=== PATIENT | female | born 1950 | race Caucasian/White ===

== ENCOUNTER 2020-05-10 12:01 | Emergency (ER) | payer MEDICARE, OTHER, SELFPAY ==
--- NOTE | 2020-05-10 12:05 | ED.GENADULT ---
HPI - General Adult General Chief complaint: Ear Stated complaint: Ear Pain Time Seen by Provider: 05/10/20 12:05 Source: patient Mode of arrival: ambulatory Limitations: no limitations History of Present Illness HPI narrative: 70-year-old female patient presents to the [facility] with complaints of left ear pain and swelling. Patient states she has a chronic issues with itchy ears and states that the last couple of weeks she has been itching her ears with a Q-tip. Patient states that yesterday the pain to the left ear got worse. Denies any fevers, body aches or chills. Denies any runny nose, sore throat. Related Data Home Medications Medication Instructions Recorded Confirmed amlodipine [Norvasc] 10 mg PO DAILY 05/10/20 05/10/20 lisinopril [Zestril] 10 mg PO DAILY 05/10/20 05/10/20 venlafaxine [Effexor XR] 75 mg PO DAILY 05/10/20 05/10/20 Allergies Allergy/AdvReac Type Severity Reaction Status Date / Time losartan Allergy Unknown Dry Mouth Verified 05/10/20 12:16 Sulfa (Sulfonamide Allergy Unknown Rash Verified 05/10/20 12:16 Antibiotics) Review of Systems Review of Systems: Narrative: CONSTITUTIONAL: Denies fever, chills, or sweats. EYES: Denies visual changes, redness, or discharge. ENT: Denies rhinorrhea, congestion, sore throat, positive left otalgia. CARDIOVASCULAR: Denies chest pain, palpitations, or edema. RESPIRATORY: Denies cough or dyspnea. GASTROINTESTINAL: Denies abdominal pain, nausea, vomiting, or diarrhea. GENITOURINARY: Denies dysuria or hematuria. SKIN: Denies rash or itching. MUSCULOSKELETAL: Denies back pain, joint pain, or myalgia. NEUROLOGIC: Denies headache, numbness, or weakness. PSYCHIATRIC: Denies anxiety or depression. 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 Dr Kasper at [facility] History of gastric bypass (~1999) History of right knee joint replacement (~05/2018) History of tubal ligation (~1971) Family History Family History Mother Patient's mother is in good health Family history of heart disease in male family member before age 55 Sibling Patient's sister is in good health Patient's brother is in good health Patient's sister is Family history of gastrointestinal disorder Carcinoma of colon Father Patient's father is Family history of heart disease in male family member before age 55 Other Family history of cardiovascular disease Hypertension Social History Social History Smoking status: Former smoker Smoking end date: 07/29/99 Alcohol intake: current Gender identity (if verbalized by the patient): Female Comments At the time of my signature I agree with nursing past medical history, surgical, social, and family history. There is no relevant family history pertinent to the presenting complaint. Exam Narrative: Exam Narrative: GENERAL: Well-appearing, well-nourished, and in no acute distress. HEAD: Normocephalic, atraumatic. EYES: PERRLA and EOMI. ENT: Nares clear, no rhinorrhea or epistaxis. Mucous membranes moist. Posterior pharynx with no erythema, tonsillectomy, exudates or lesions present. The right ear does appear dry and irritated but the TM with has no erythema, bulging no evidence of infection or discharge. The left TM is unable to be assessed due to the fact that the canal is so swollen that I barely able to get the otoscope and there. NECK: Supple. No lymph
[2020-05-10 12:11] VITALS: BP 137/85; PULSE 93; RESP 18; TEMP 36.7; O2SAT 98
== END 2020-05-10 12:42 | disposition home or self-care (01) ==
PROVIDERS: Emergency Provider Nurse Practitioner Family
DX: H60.502 Unspecified acute noninfective otitis externa, left ear (principal); Z87.891 Personal history of nicotine dependence; K21.9 Gastro-esophageal reflux disease without esophagitis; E78.5 Hyperlipidemia, unspecified; I10 Essential (primary) hypertension; Z98.84 Bariatric surgery status; F41.9 Anxiety disorder, unspecified; F32.9 Major depressive disorder, single episode, unspecified; Z96.651 Presence of right artificial knee joint
CPT/HCPCS: 99213; G0463

== ENCOUNTER → 2021-01-06 13:47 | Outpatient (CLI) | payer MEDICARE, OTHER, SELFPAY ==
--- NOTE | ~2021-01-06 | XR_ITS ---
EXAMINATION: XR wrist RT 2V DATE: 01/06/2021 14:11 INDICATION: Right wrist pain. TECHNIQUE: 2 views of right wrist were obtained. COMPARISON: None. FINDINGS: Bone alignment is normal. No fracture. There is moderate osteoarthritis of triscaphe joint and severe osteoarthritis of first carpometacarpal joint. IMPRESSION: 1. Polyarticular osteoarthritis. Reviewed, dictated and finalized at location A.
--- NOTE | ~2021-01-06 | CT_ITS ---
EXAMINATION: CT sinus wo con DATE: 01/06/2021 14:11 INDICATION: Chronic sinusitis TECHNIQUE: Computed tomography (CT) of the paranasal sinuses was performed without intravenous contra st. The dose-length product was 264.97 mGy-cm. Automated exposure control and iterative reconstructio n technique were employed. Automated exposure control and iterative reconstruction technique were employed. COMPARISON: None FINDINGS: Paranasal sinuses and mastoids are pneumatized. No significant mucosal thickening or air-fl uid levels. Ostiomeatal units are patent. Leftward nasal septal deviation. No mucoperiosteal reaction . There is intracranial atherosclerosis. IMPRESSION: 1. No significant sinus disease. Reviewed, dictated and finalized at location B.
--- NOTE | ~2021-01-06 | XR_ITS ---
EXAMINATION: XR wrist LT 2V DATE: 01/06/2021 14:12 INDICATION: Left wrist pain. TECHNIQUE: 3 views of left wrist were obtained. COMPARISON: None. FINDINGS: Bone alignment is normal. No fracture. There is severe osteoarthritis of triscaphe joint an d first carpometacarpal joint. IMPRESSION: 1. Polyarticular osteoarthritis. Reviewed, dictated and finalized at location A.
== END ==
PROVIDERS: Visit Provider Nurse Practitioner Family
DX: J32.9 Chronic sinusitis, unspecified (principal); M19.031 Primary osteoarthritis, right wrist; M19.032 Primary osteoarthritis, left wrist
CPT/HCPCS: 70486; 73100

== ENCOUNTER → 2022-02-06 10:52 | Outpatient (CLI) | payer MEDICARE, OTHER, SELFPAY ==
--- NOTE | ~2022-02-06 | MR_ITS ---
EXAMINATION: MR lumbar spine wo con DATE: 02/06/2022 11:36 INDICATION: Lumbar radiculopathy. TECHNIQUE: Magnetic resonance imaging (MRI) of the lumbar spine was performed without intravenous con trast. Sequences included sagittal T2-weighted FSE, sagittal T2-weighted FS FSE, sagittal T1-weighted FSE, and axial T2-weighted FSE. COMPARISON: None FINDINGS: There is 7 degrees dextrocurvature of thoracic lumbar spine. There is 5 mm retrolisthesis o f L1 on L2, L2 on L3, and L3 on L4 and 6 mm anterolisthesis of L4 on L5. Vertebral body heights are n ormal. There is mildly decreased disc height at T12-L1, moderately decreased disc at L1-L2 and L2-L3, mildly decreased disc height at L3-L4 and L4-L5, and severely decreased disc height at L5-S1 with en dplate remodeling. The distal spinal cord signal intensity is normal. The conus medullaris is at L1. The following disc levels are specifically discussed: L1-L2: The disc is bulging. There is moderate bilateral facet joint osteoarthritis. There is no neura l foraminal stenosis. There is mild central canal stenosis. L2-L3: The disc is bulging and has an annular fissure. There is severe right and mild left facet join t osteoarthritis. There is mild bilateral neural foraminal stenosis. There is mild central canal sten osis. L3-L4: The disc is bulging. There is severe bilateral facet joint osteoarthritis. There is mild bilat eral neural foraminal stenosis. There is mild central canal stenosis. L4-L5: The disc is bulging. There is severe bilateral facet joint osteoarthritis. There is moderate r ight and mild left neural foraminal stenosis. There is mild central canal stenosis. L5-S1: The disc is bulging and has an annular fissure. There is severe bilateral facet joint osteoart hritis. There is moderate bilateral neural foraminal stenosis. There is mild central canal stenosis. IMPRESSION: 1. Severe lumbar spondylosis. Reviewed, dictated and finalized at location A.
== END ==
PROVIDERS: PCP Nurse Practitioner Family; Visit Provider Nurse Practitioner Family
DX: M47.27 Other spondylosis with radiculopathy, lumbosacral region (principal); M48.07 Spinal stenosis, lumbosacral region
CPT/HCPCS: 72148

== ENCOUNTER 2022-03-23 01:28 | Day surgery (SDC) | payer MEDICARE, OTHER, SELFPAY ==
[2022-03-13 09:23] VITALS: BMI 32.7
--- NOTE | 2022-03-22 16:26 | PM.HPGS ---
History of Present Illness History of Present Illness Consent: Risks, benefits, and alternatives have been discussed and questions answered. Patient agrees to proceed with procedure. Chief complaint: family hx of colon ca Narrative: Lotus Owens is a 71 year old female Referred for colon cancer screening. She had a polyp removed about 6 years ago. There is a family history of colon cancer in a sibling. 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 Dr Kasper at [facility] History of gastric bypass (~1999) History of right knee joint replacement (~05/2018) History of tubal ligation (~1971) Family History Family History Mother Patient's mother is in good health Family history of heart disease in male family member before age 55 Sibling Patient's sister is in good health Patient's brother is in good health Patient's sister is Family history of gastrointestinal disorder Carcinoma of colon Father Patient's father is Family history of heart disease in male family member before age 55 Other Family history of cardiovascular disease Hypertension Social History Social History Smoking status: Former smoker Smoking end date: 07/29/99 Alcohol intake: current Alcohol use details: socially Substance use: never Substance use type: does not use Living arrangements: with family Gender identity (if verbalized by the patient): Female Sexual Orientation (if Verbalized by the Patient): Straight or Heterosexual Spiritual care concerns: No Agree to blood products: Yes Meds Home Medications and Allergies Home Medications Medication Instructions Recorded Confirmed Type omeprazole 20 mg capsule,delayed 20 mg PO DAILY #14 caps 01/18/21 03/23/22 Rx release venlafaxine 75 mg capsule,extended 75 mg PO DAILY #90 caps 12/18/21 03/23/22 Rx release 24 hr famotidine 20 mg tablet 20 mg PO DAILY #90 tabs 02/22/22 03/23/22 Rx amlodipine 10 mg tablet 10 mg PO DAILY #90 tabs 02/27/22 03/23/22 Rx celecoxib 200 mg capsule 200 mg PO DAILY PRN pain #90 caps 02/27/22 03/23/22 Rx lisinopril 10 mg tablet 10 mg PO DAILY #90 tabs 02/27/22 03/23/22 Rx Lactobacillus 1 cap PO DAILY 03/13/22 03/23/22 History acidophilus-Bifidobac.animalis 2.5 billion cell capsule (Daily Probiotic) biotin 1,000 mcg chewable tablet 1,000 mcg PO DAILY 03/13/22 03/23/22 History calcium carbonate 500 mg calcium 500 mg PO DAILY 03/13/22 03/23/22 History (1,250 mg) tablet cholecalciferol (vitamin D3) 25 25 mcg PO DAILY 03/13/22 03/23/22 History mcg (1,000 unit) tablet (Vitamin D3) fluticasone propionate 50 2 spray intranasal BID PRN Allergy 03/13/22 03/23/22 History mcg/actuation nasal Symptoms spray,suspension (Flonase Allergy Relief) magnesium 500 mg tablet 500 mg PO DAILY 03/13/22 03/23/22 History mecobalamin (vitamin B12) 1,000 1,000 mcg PO DAILY 03/13/22 03/23/22 History mcg chewable tablet potassium chloride 10 mEq 10 meq PO DAILY 03/13/22 03/23/22 History tablet,extended release zinc 50 mg tablet 50 mg PO DAILY 03/13/22 03/23/22 History Allergies Allergy/AdvReac Type Severity Reaction Status Date / Time Sulfa (Sulfonamide Allergy Unknown Rash Verified 03/23/22 0
[2022-03-23 07:52] VITALS: BP 129/84; PULSE 98; RESP 16; TEMP 36.9; O2SAT 97; BMI 33.8
[2022-03-23] MEDS: LACTATED RINGERS 1,000 ML 150 ML IV CONT (08:01)
--- NOTE | 2022-03-23 08:21 | WPDANESEPPF ---
Anes - Initial Pre Proc Eval Procedure: Operation Date: 03/23/22 09:00 Proposed Procedures p Screening Colonoscopy - Edin Maldonado MD Date/Time: 03/23/22 08:21 Surgeon: Edin Maldonado MD Pre Op Diagnosis: family hx of colon ca Patient Data Age: 71 Gender: F Height: 1.63 m Weight: 89.5 kg Last Vital Signs Temp 98.4 F 03/23/22 07:52 Pulse 98 03/23/22 07:52 Resp 16 03/23/22 07:52 BP 129/84 03/23/22 07:52 Pulse Ox 97 03/23/22 07:52 O2 Del Method Room Air 03/23/22 07:52 Allergies Allergy/AdvReac Type Severity Reaction Status Date / Time Sulfa (Sulfonamide Allergy Unknown Rash Verified 03/23/22 07:51 Antibiotics) losartan AdvReac Unknown Dry Mouth Verified 03/23/22 07:51 Home Medications Medication Instructions Recorded Confirmed Type omeprazole 20 mg capsule,delayed 20 mg PO DAILY #14 caps 01/18/21 03/23/22 Rx release venlafaxine 75 mg capsule,extended 75 mg PO DAILY #90 caps 12/18/21 03/23/22 Rx release 24 hr famotidine 20 mg tablet 20 mg PO DAILY #90 tabs 02/22/22 03/23/22 Rx amlodipine 10 mg tablet 10 mg PO DAILY #90 tabs 02/27/22 03/23/22 Rx celecoxib 200 mg capsule 200 mg PO DAILY PRN pain #90 caps 02/27/22 03/23/22 Rx lisinopril 10 mg tablet 10 mg PO DAILY #90 tabs 02/27/22 03/23/22 Rx Lactobacillus 1 cap PO DAILY 03/13/22 03/23/22 History acidophilus-Bifidobac.animalis 2.5 billion cell capsule (Daily Probiotic) biotin 1,000 mcg chewable tablet 1,000 mcg PO DAILY 03/13/22 03/23/22 History calcium carbonate 500 mg calcium 500 mg PO DAILY 03/13/22 03/23/22 History (1,250 mg) tablet cholecalciferol (vitamin D3) 25 25 mcg PO DAILY 03/13/22 03/23/22 History mcg (1,000 unit) tablet (Vitamin D3) fluticasone propionate 50 2 spray intranasal BID PRN Allergy 03/13/22 03/23/22 History mcg/actuation nasal Symptoms spray,suspension (Flonase Allergy Relief) magnesium 500 mg tablet 500 mg PO DAILY 03/13/22 03/23/22 History mecobalamin (vitamin B12) 1,000 1,000 mcg PO DAILY 03/13/22 03/23/22 History mcg chewable tablet potassium chloride 10 mEq 10 meq PO DAILY 03/13/22 03/23/22 History tablet,extended release zinc 50 mg tablet 50 mg PO DAILY 03/13/22 03/23/22 History Patient hx anesthesia problems: none Family hx anesthesia problems: none Results Review: All pre-operative results and documents have been reviewed as part of the pre-operative evaluation. 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 Dr Kasper at [facility] History of gastric bypass (~1999) History of right knee joint replacement (~05/2018) History of tubal ligation (~1971) Family History Family History Mother Patient's mother is in good health Family history of heart disease in male family member before age 55 Sibling Patient's sister is in good health Patient's brother is in good health Patient's sister is Family history of gastrointestinal disorder Carcinoma of colon Father Patient's father is Family history of heart disease in male family member before age 55 Other Family history of cardiovascular disease Hypertension Social History Social History Smoking status: Former smoker Smoking end date: 07/29/99 Alcohol intake: current Alcohol use details: socially Substance use: never Substance use type: does not use L
[2022-03-23 09:15] VITALS: BP 102/68; PULSE 74; RESP 20; O2SAT 97
[2022-03-23 09:25] VITALS: BP 109/71; PULSE 71; RESP 18; O2SAT 99
[2022-03-23 09:35] VITALS: BP 119/83; PULSE 72; RESP 20; O2SAT 99
== END 2022-03-23 09:43 | disposition home or self-care (01) ==
PROVIDERS: PCP Nurse Practitioner Family; Visit Provider Internal Medicine Gastroenterology
PROC: 0DJD8ZZ Inspection of Lower Intestinal Tract, Via Natural or Artificial Opening Endoscopic (ICD-10-PCS; CPT 45378; principal; 2022-03-23 09:00)
DX: Z12.11 Encounter for screening for malignant neoplasm of colon (principal); K57.30 Diverticulosis of large intestine without perforation or abscess without bleeding; Z80.0 Family history of malignant neoplasm of digestive organs; K63.5 Polyp of colon; Z87.891 Personal history of nicotine dependence
CPT/HCPCS: 45380; 88305; J2704; J7120

== ENCOUNTER → 2022-05-31 15:47 | Outpatient (CLI) | payer MEDICARE, OTHER, SELFPAY ==
--- NOTE | ~2022-05-31 | MM_ITS ---
EXAMINATION: MM screening [facility] BI w shazia HISTORY: Screening TECHNIQUE: Craniocaudal and mediolateral oblique 3-D tomosynthesis images were obtained and synthetic 2-D images were generated. CAD analysis was submitted and interpreted. COMPARISON: Comparison to multiple prior studies sequentially, with oldest reviewed study dated 02/23. BREAST PARENCHYMAL COMPOSITION: There are scattered areas of fibroglandular density. FINDINGS: There is no evidence of suspicious mass, calcification, or architectural distortion to sugg est malignancy in either breast. There has been no suspicious interval change. IMPRESSION: 1. No mammographic evidence of malignancy. 2. Recommend routine screening mammography in one year. BI-RADS Category 1: Negative Reviewed, dictated and finalized at location A.
--- NOTE | ~2022-05-31 | DEXA_ITS ---
Bone Density Report Name: HENRIETTA ROB Age: 72 Sex: Female Ethnicity: White Date of : 1950 Indication: postmenopausal; screening for osteoporosis; parental hip fracture; height loss; Referring Provider: Nyla Emmanuel Study: Bone densitometry was performed. Exam Date: May 31, 2022 Accession number: [id number] Bone Density: Region BMD T-score Z-score Classification AP Spine (L1, L3, L4) 1.021 -0.3 2.0 Normal Femoral Neck (Left) 0.618 -2.1 -0.2 Osteopenia Total Hip (Left) 0.767 -1.4 0.2 Osteopenia Femoral Neck (Right) 0.511 -3.0 -1.1 Osteoporosis Total Hip (Right) 0.657 -2.3 -0.7 Osteopenia Total Hip Mean 0.712 -1.9 -0.3 Osteopenia World Health Organization criteria for BMD impression classify patients as: Normal (T-score at or above -1.0), Osteopenia (T-score between -1.0 and -2.5), or Osteoporosis (T-score at or below -2.5). 10-year Fracture Risk: FRAX not reported because: Some T-score for Spine Total or Hip Total or Femoral Neck at or below -2.5 Clinical Information Provided by Patient: Parent has had a hip fracture Has used the following medications: Vitamin D, Calcium Patient maximum height was 67.0 Menopause Age: 55 No regular weight bearing exercise Does not regularly consume dairy products Drinks caffeinated beverages Onset of menses at age 10 Number of children 2 Impression: The patient has osteoporosis, based on the Right Femoral Neck T-score. The patient has risk factors, including: parental hip fracture. Discussion: INCREASED RISK OF FRACTURE. BONE DENSITY IS UNDESIRABLY LOW AT ONE OR MORE SKELETAL SITES, CONSISTENT WITH POSTMENOPAUSAL OSTEOPOROSIS. This patient's lowest T-score meets the World Health Organization's (WHO) criteria for osteoporosis at one or more sites (T-score -2.5 or below). In untreated patients, the risk of osteoporotic fracture increases approximately two-fold for each 1.0 SD decrease in T-score. Low bone density is not the only risk factor for fracture; also consider factors such as patient's age, frailty or poor health, risk of falling, risk of injury, previous osteoporotic fracture, family history of osteoporosis, cigarette smoking, low body weight, etc. Not everyone with low bone mineral density has osteoporosis; osteomalacia and other metabolic bone disorders should also be considered. Patients who have osteoporosis should be evaluated for specific diseases and conditions (secondary causes) that may cause or contribute to bone loss. The [place] [employer]ocrin[employer] (AACE) and National Osteoporosis Foundation (NOF) recommend pharmacologic intervention for all postmenopausal women whose T-score is in this range. The patient should follow a healthful lifestyle (good nutrition with adequate calcium and vitamin D, and appropriate weight-beari
== END ==
PROVIDERS: PCP Nurse Practitioner Family; Visit Provider Nurse Practitioner Family
DX: Z12.31 Encounter for screening mammogram for malignant neoplasm of breast (principal); Z78.0 Asymptomatic menopausal state; M85.89 Other specified disorders of bone density and structure, multiple sites; M81.0 Age-related osteoporosis without current pathological fracture
CPT/HCPCS: 77063; 77067; 77080